=== PATIENT | male | born 1945 | race Caucasian/White ===

== ENCOUNTER 2016-07-07 08:48 | Outpatient (CLI) ==
[2016-05-04 15:28] VITALS: BMI 27.6
[2016-07-07 13:20] LABS: BASOPHILS # (AUTO) 0.1 K/uL (0-0.2); BASOPHILS % (AUTO) 0.7 % (0.0-3.0); EOSINOPHILS # (AUTO) 0.2 K/ul (0.0-0.7); EOSINOPHILS % (AUTO) 3.1 % (0.0-7.0); HEMATOCRIT 38.8 % (42.0-52.0); HEMOGLOBIN 12.7 g/dl (14.0-18.0); IMMATURE GRANULOCYTE % (AUTO) 0.1 % (0.0-5.0); LYMPHOCYTES # (AUTO) 1.6 K/uL (0.60-3.4); LYMPHOCYTES % (AUTO) 23.2 (10.0-50.0); MEAN CORPUSCULAR HEMOGLOBIN 30.1 pg (27.0-31.0); MEAN CORPUSCULAR HGB CONC 32.7 (31.8-35.4); MEAN CORPUSCULAR VOLUME 91.9 fl (80.0-94.0); MONOCYTES # (AUTO) 0.7 K/uL (0.4-2.0); MONOCYTES % (AUTO) 9.5 (0-10); NEUTROPHILS # (AUTO) 4.3 K/ul (2.0-6.9); NEUTROPHILS % (AUTO) 63.4; PLATELET COUNT 311 10^3/uL (140-440); RED BLOOD COUNT 4.22 10^6/ul (4.70-6.10); WHITE BLOOD COUNT 6.85 K/ul (4.2-10.2)
[2016-07-07 13:25] LABS: BILIRUBIN,URINE Negative (NEGATIVE); KETONES,URINE Negative (NEGATIVE); LEUKOCYTE ESTERASE ,URINE Negative (NEGATIVE); NITRITE,URINE Negative (NEGATIVE); PROTEIN,URINE Negative (NEGATIVE); URINE, BLOOD Negative (NEGATIVE)
[2016-07-07 13:35] LABS: ADD URINE MICROSCOPIC NO; ALBUMIN 3.6 g/dL (3.4-5.0); ALBUMIN/GLOBULIN RATIO 0.86; ANION GAP 14.2; BILIRUBIN,TOTAL 0.51 mg/dL (0.00-1.20); BUN/CREATININE RATIO 11.88; CALCIUM 9.7 mg/dL (8.2-10.2); CHOL/HDL RATIO 4.4 (4.5-6.4); CREATININE 1.01 mg/dL (0.60-1.10); POTASSIUM 4.2 mmol/L (3.5-5.1); TOTAL PROTEIN 7.8 g/dL (5.8-8.1)
== END 2016-07-07 08:49 | disposition home or self-care (01) ==
LOC: LAB 08:48
PROVIDERS: ATTEND General Practice
DX: I15.8 Other secondary hypertension (principal); Z79.899 Other long term (current) drug therapy
CPT/HCPCS: 36415; 80053; 80061; 81001; 85025

== ENCOUNTER 2016-09-01 15:59 | Outpatient (CLI) ==
[2016-09-01 16:23] VITALS: BMI 25.8
== END 2016-09-01 16:00 ==
LOC: AMBL 15:59
PROVIDERS: ATTEND Internal Medicine
DX: M54.5 Low back pain (principal); Z98.890 Other specified postprocedural states; V53.5XXA Driver of pick-up truck or van injured in collision with car, pick-up truck or van in traffic accident, initial encounter

== ENCOUNTER 2016-09-01 16:12 | Emergency (ER) ==
[2016-09-01] MEDS ORDERED: ZOFRAN 4 MG/2 ML IM STA (16:18)
[2016-09-01] MEDS ORDERED: MORPHINE 4 MG/ML SYRINGE IM STA (16:18)
[2016-09-01 16:23] VITALS: TEMP 97.8; BMI 25.8
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
--- NOTE | 2016-09-01 17:14 | CT ---
EXAM: CT lumbar spine without contrast HISTORY: Pain COMPARISON: 02/09/2015 TECHNIQUE: CT lumbar spine performed without intravenous contrast. Coronal and sagittal reformatte d images obtained. FINDINGS: The bones appear demineralized. No fracture. No subluxation. Multilevel bulky osteophy te formation. Multilevel intervertebral disc space narrowing that is moderate to severe at L1-L2 an d L4-L5 and severe at L5-S1. 2 mm retrolisthesis of L1 on L2, unchanged. Small hiatal hernia. Aor ta normal in caliber. Atherosclerosis. Colonic diverticulosis. Sacroiliac joints intact with mild degenerative change and partial osseous bridging. T12-L1: Posterior disc osteophyte complex and facet arthrosis causing mild to moderate right and mod erate to severe left neural foraminal narrowing. L1-L2: Posterior disc osteophyte complex and facet arthrosis causing mild central canal narrowing a nd moderate bilateral neural foraminal narrowing. L2-L3: Posterior disc osteophyte complex and facet arthrosis causing mild bilateral neural foramina l narrowing. L3-L4: Posterior disc osteophyte complex and facet arthrosis causing moderate central canal narrowi ng and moderate to severe bilateral neural foraminal narrowing. L4-L5: Posterior disc osteophyte complex and facet arthrosis causing moderate to severe central can al narrowing and moderate to severe bilateral neural foraminal narrowing. L5-S1: Posterior disc osteophyte complex and facet arthrosis causing moderate to severe bilateral n eural foraminal narrowing. IMPRESSION: 1. No fracture. 2. Advanced chronic discogenic degenerative disease and facet arthrosis. Please see segmental anal ysis, noting central canal and neural foraminal narrowing with areas of moderate to severe narrowing .
--- NOTE | 2016-09-01 17:26 | CT ---
EXAM: CT scan thoracic spine HISTORY: Pain COMPARISON: None. FINDINGS: Contiguous axial images obtained through the thoracic spine utilizing 3-mm collimation. Sagittal and coronal reconstructions were imaged and reviewed.. There is a chronic central depressi on involving the T6 vertebral body. There is generalized osteopenia with multilevel disc calcificat ion in the lower thoracic spine. Extensive bridging anterior osteophytes extend from T4 through T12 .. There is no acute fracture or dislocation. Degenerative facet disease is noted within the lower thoracic spine with multilevel neural foraminal narrowing IMPRESSION: Moderate generalized osteopenia with multilevel disc calcification and extensive anterior bridging o steophytes. There is multilevel facet arthropathy with neural foraminal narrowing.
[2016-09-01 17:46] VITALS: BP 183/90
== END 2016-09-01 17:47 | disposition home or self-care (01) ==
LOC: ED 16:12
DX: M54.5 Low back pain (principal); G89.29 Other chronic pain; M54.2 Cervicalgia; V89.2XXA Person injured in unspecified motor-vehicle accident, traffic, initial encounter
CPT/HCPCS: 96372; 99283

== ENCOUNTER 2016-11-07 11:38 | Outpatient (CLI) | payer OTHER ==
[2016-11-07 12:56] LABS: BASOPHILS % (AUTO) 0.9 % (0.0-3.0); EOSINOPHILS # (AUTO) 0.2 K/ul (0.0-0.7); EOSINOPHILS % (AUTO) 3.9 % (0.0-7.0); HEMATOCRIT 38.5 % (42.0-52.0); IMMATURE GRANULOCYTE % (AUTO) 0.2 % (0.0-5.0); LYMPHOCYTES # (AUTO) 1.4 K/uL (0.60-3.4); LYMPHOCYTES % (AUTO) 30.6 (10.0-50.0); MEAN CORPUSCULAR HEMOGLOBIN 31.3 pg (27.0-31.0); MEAN CORPUSCULAR HGB CONC 33.8 (31.8-35.4); MEAN CORPUSCULAR VOLUME 92.5 fl (80.0-94.0); MONOCYTES # (AUTO) 0.5 K/uL (0.4-2.0); MONOCYTES % (AUTO) 10.1 (0-10); NEUTROPHILS # (AUTO) 2.5 K/ul (2.0-6.9); NEUTROPHILS % (AUTO) 54.3; PLATELET COUNT 236 10^3/uL (140-440); RED BLOOD COUNT 4.16 10^6/ul (4.70-6.10); WHITE BLOOD COUNT 4.67 K/ul (4.2-10.2)
[2016-11-07 13:07] LABS: ALBUMIN 3.6 g/dL (3.4-5.0); ALBUMIN/GLOBULIN RATIO 0.92; ANION GAP 14.3; BILIRUBIN,TOTAL 0.48 mg/dL (0.00-1.20); BUN/CREATININE RATIO 12.61; CALCIUM 9.3 mg/dL (8.2-10.2); CHOL/HDL RATIO 3.7 (4.5-6.4); CREATININE 1.11 mg/dL (0.60-1.10); POTASSIUM 4.3 mmol/L (3.5-5.1); TOTAL PROTEIN 7.5 g/dL (5.8-8.1)
[2016-11-07 13:25] LABS: BILIRUBIN,URINE Negative (NEGATIVE); KETONES,URINE Trace (NEGATIVE); LEUKOCYTE ESTERASE ,URINE Negative (NEGATIVE); NITRITE,URINE Negative (NEGATIVE); PH,URINE 5.5 (5-9); PROTEIN,URINE Negative (NEGATIVE); URINE, BLOOD Negative (NEGATIVE)
[2016-11-07 13:30] LABS: ADD URINE MICROSCOPIC NO
== END 2016-11-07 11:39 | disposition home or self-care (01) ==
LOC: LAB 11:38
PROVIDERS: ATTEND General Practice
DX: D50.9 Iron deficiency anemia, unspecified (principal); I10 Essential (primary) hypertension; K57.32 Diverticulitis of large intestine without perforation or abscess without bleeding; K92.2 Gastrointestinal hemorrhage, unspecified; Z79.899 Other long term (current) drug therapy
CPT/HCPCS: 36415; 80053; 80061; 81001; 85025

== ENCOUNTER 2017-03-07 13:07 | Outpatient (CLI) ==
--- NOTE | 2017-03-07 14:29 | DI ---
EXAM: RIGHT WRIST THREE VIEWS HISTORY: Injury, pain FINDINGS: Bones appear demineralized. There is mild osteoarthritis of the radiocarpal articulations . No displaced fracture or joint dislocation is identified. IMPRESSION: No fracture or dislocation.
== END 2017-03-07 13:08 | disposition home or self-care (01) ==
LOC: RAD 13:07
PROVIDERS: ATTEND General Practice
DX: S69.91XA Unspecified injury of right wrist, hand and finger(s), initial encounter (principal)

== ENCOUNTER 2017-03-12 13:20 | Outpatient (CLI) ==
[2017-03-12 13:30] LABS: BASOPHILS # (AUTO) 0.1 K/uL (0-0.2); BASOPHILS % (AUTO) 1.1 % (0.0-3.0); EOSINOPHILS # (AUTO) 0.2 K/ul (0.0-0.7); EOSINOPHILS % (AUTO) 3.1 % (0.0-7.0); HEMATOCRIT 38.3 % (42.0-52.0); HEMOGLOBIN 13.1 g/dl (14.0-18.0); IMMATURE GRANULOCYTE % (AUTO) 0.2 % (0.0-5.0); LYMPHOCYTES # (AUTO) 1.7 K/uL (0.60-3.4); LYMPHOCYTES % (AUTO) 30.3 (10.0-50.0); MEAN CORPUSCULAR HEMOGLOBIN 31.4 pg (27.0-31.0); MEAN CORPUSCULAR HGB CONC 34.2 (31.8-35.4); MEAN CORPUSCULAR VOLUME 91.8 fl (80.0-94.0); MONOCYTES # (AUTO) 0.5 K/uL (0.4-2.0); MONOCYTES % (AUTO) 9.7 (0-10); NEUTROPHILS % (AUTO) 55.6; PLATELET COUNT 245 10^3/uL (140-440); RED BLOOD COUNT 4.17 10^6/ul (4.70-6.10); WHITE BLOOD COUNT 5.47 K/ul (4.2-10.2)
[2017-03-12 13:39] LABS: ADD URINE MICROSCOPIC NO; BILIRUBIN,URINE Negative (NEGATIVE); KETONES,URINE Negative (NEGATIVE); LEUKOCYTE ESTERASE ,URINE Negative (NEGATIVE); NITRITE,URINE Negative (NEGATIVE); PROTEIN,URINE Negative (NEGATIVE); URINE, BLOOD Negative (NEGATIVE)
[2017-03-12 13:43] LABS: ALBUMIN 3.4 g/dL (3.4-5.0); ALBUMIN/GLOBULIN RATIO 0.89; ANION GAP 14.1; BILIRUBIN,TOTAL 0.47 mg/dL (0.00-1.20); BUN/CREATININE RATIO 13.97; CALCIUM 9.5 mg/dL (8.2-10.2); CHOL/HDL RATIO 4.8 (4.5-6.4); CREATININE 0.93 mg/dL (0.60-1.10); POTASSIUM 4.1 mmol/L (3.5-5.1); TOTAL PROTEIN 7.2 g/dL (5.8-8.1)
== END 2017-03-12 13:21 | disposition home or self-care (01) ==
LOC: LAB 13:20
PROVIDERS: ATTEND General Practice
DX: I10 Essential (primary) hypertension (principal); M54.5 Low back pain; D64.9 Anemia, unspecified; K57.32 Diverticulitis of large intestine without perforation or abscess without bleeding; Z79.899 Other long term (current) drug therapy
CPT/HCPCS: 36415; 80053; 80061; 81001; 85025

== ENCOUNTER 2017-07-10 10:17 | Outpatient (CLI) ==
--- NOTE | 2017-07-10 12:33 | CT ---
EXAM: CT THORAX HISTORY: Cough. TECHNIQUE: CT thorax without intravenous contrast. Multiplanar images presented. Coronal and sagit cinthia re-formations. COMPARISON: None FINDINGS: Heart size is within normal limits. There is mild to moderate atherosclerotic disease. A few scatte red subcarinal and hilar lymph nodes are seen, some which are calcified. There is mild biapical irregular pleuroparenchymal thickening suggesting probable fibrosis. A few sc attered micro nodules are seen. No acute infiltrates or vascular congestion. No pleural fluid. The bones appear demineralized. There is ankylosis of the thoracic spine. Incidental note of a 1 cm low attenuation lesion in the lower right hepatic lobe unchanged since prior CT abdomen and pelvis da pete 01/30/2015. This has probably a cyst. IMPRESSION: 1. There is mild biapical irregular pleuroparenchymal thickening suggesting probable fibrosis. A fe w scattered micro nodules are seen. No acute infiltrates or vascular congestion. No pleural fluid. 2. Mild to moderate atherosclerotic disease.
== END 2017-07-10 10:18 | disposition home or self-care (01) ==
LOC: RAD 10:17
PROVIDERS: ATTEND General Practice
DX: R05 Cough (principal); R07.81 Pleurodynia; R50.9 Fever, unspecified; D64.9 Anemia, unspecified; I10 Essential (primary) hypertension; Z12.5 Encounter for screening for malignant neoplasm of prostate; Z79.899 Other long term (current) drug therapy
CPT/HCPCS: 36415; 80053; 80061; 81001; 85025; 86644; 86645; 86664; 86710; 87502

== ENCOUNTER 2017-07-23 06:27 | Outpatient (CLI) ==
--- NOTE | 2017-07-23 14:04 | ECHOSTRESS ---
Date of Exam: 07/23/2017 Ordering Physician: PAT BRYANT Reason for Echo: SHORT OF BREATH, FATIGUE, STRESS TEST -NO ISCHEMIA M-Mode Normal Adult Results LV Dimensions Normal Adult Results AoV Opening excursions >1.6 LVEDD-base- 3.5-5.8 Ao root dimensions 2.0-3.7 LVESD-base- 3.1-4.6 L. Atrium dimensions 1.9-3.8 Post. Wall thickness 0.8-1.1 IV septum (thickness) 0.7-1.2 Post. Wall excursion 0.72-1.3 Septal motion Systolic motion R. Ventricular cavity 1.5-2.0 LVEF 60% Paradoxical septal wall motion 2-D: NORMAL LEFT VENTRICULAR CONTRACTILITY RESTING AND POST EXERCISE M-MODE: MV: AV: TV: PV: CHAMBER SIZE: WALL MOTION: NORMAL LEFT VENTRICULAR CONTRACTILITY RESTING AND POST EXERCISE PERICARDIUM: INTERPRETATION: 1. NORMAL LEFT VENTRICULAR CONTRACTILITY RESTING AND POST EXERCISE MTDD
--- NOTE | 2017-07-23 14:29 | STRESSECHO ---
Date of Test: 07/23/2017 Reason for Exam: SHORT OF BREATH, FATIGUE Ordering Physician: PAT BRYANT Current Medications: IRBESARTAN, VIT D, FERROUS SULFATE, ASA, ATIVAN, L LIPINE, VIT C, GABAPENTIN, CARISOPRODOL, OXYCODONE, CYANOCOBALAMIN, CALCIUM, MAGNESIUM Physical Findings: SI, S2, NO S3 Resting EKG: SINUS RHYTHM, NO ACUTE CHANGES Target Heart Rate: 124 Max Heart Rate: 147 S-T SEGMENT STAGE MPH/GRADE HEART RATE BPM BLOOD PRESSURE MMHG RHYTHM 0 +/- ELEVATION DEPRESSION SYMPTOMS,COMMENTS At Rest 62 186/92 SR X NONE 1 1.7/10% 130 190/76 SR X NONE 2 2.5/12% 3 3.4/14% 4 4.2/16% 5 5.0/18% Immediately after 144 SR X SOB Durations of Exercise: 4:00 Maximum Heart Rate Reached: 144 Reason for Termination: SHORT OF BREATH 4 Min Post Exercise: HR: 76BPM, BP: 176/110 MMHG, SR, +/-, NO CHEST PAIN INTERPRETATION: 94% OXYGEN SATURATION WITH EXERCISE METS 7.0 1. BLOOD PRESSURE-HYPERTENSION AT REST AND WITH EXERCISE 2. NO EVIDENCE OF ISCHEMIA BY ST-T WAVE 3. NO CHEST PAIN OR CHEST DISCOMFORT 4. NO ARRHYTHMIAS NORMAL LEFT VENTRICULAR CONTRACTILITY-RESTING AND POST EXERCISE MTDD
== END 2017-07-23 06:28 | disposition home or self-care (01) ==
LOC: CAR 06:27
PROVIDERS: ATTEND General Practice
DX: R06.02 Shortness of breath (principal); R53.83 Other fatigue; I10 Essential (primary) hypertension

== ENCOUNTER 2017-08-23 10:57 | Outpatient (CLI) | payer OTHER ==
--- NOTE | 2017-08-23 12:29 | DI ---
EXAM: Three views of the left foot. History: Left foot pain. Findings: No acute fracture or dislocation. Mild narrowing of the first MTP joint with tiny osteoph ytes. No radiopaque foreign bodies. Impression: 1. No acute osseous abnormality. 2. Mild arthritis of the first MTP joint
--- NOTE | 2017-08-23 12:31 | DI ---
EXAM: LEFT ANKLE 3 VIEWS HISTORY: Ankle pain FINDINGS: Trabecular markings are accentuated consistent with at least mild diffuse demineralization . No fracture or joint dislocation. No ankle joint effusion is seen. There is bony spurring of the posterior calcaneus consistent with mild calcific tendinosis. IMPRESSION: 1. Mild calcific tendinosis posterior calcaneus. 2. No fracture or dislocation.
== END 2017-08-23 10:58 | disposition home or self-care (01) ==
LOC: RAD 10:57
PROVIDERS: ATTEND General Practice
DX: M79.672 Pain in left foot (principal)

== ENCOUNTER 2017-09-04 08:29 | Day surgery (SDC) | payer OTHER ==
[2017-09-04] MEDS ORDERED: NEOSPORIN OINT 0.9 GM PACKET TP STA (08:44)
[2017-09-04] MEDS ORDERED: LIDOCAINE 1% 20 ML MDV ONE ×2 (10:11)
[2017-09-04] MEDS: LIDOCAINE 1% 20 ML MDV ID STA ×2 (10:11→10:30)
--- NOTE | 2017-09-04 11:36 | OP ---
DATE OF PROCEDURE: 09/04/17 INDICATIONS: 72-year-old male is scheduled for surgery today. He has two lesions to be removed; one at the sagittal area near the buttocks. He also has a lesion on the left face, which is raised and umbilicated somewhat. These probably are skin carcinomas. He was advised as well as his , that I would becoming close to the lesion in the scalp because of the problem of approximation of the edges, that if there is a cancer close to the edge or at the edge, he would probably need reexcision. The area on the face also would be excised. The patient was advised about the possibility of infection as well as excessive scar formation. PREOPERATIVE DIAGNOSIS: 1. TUMOR SCALP TIMES TWO, SMALLER ANTERIOR, LARGER POSTERIOR. 2. 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 OPERATION: ELLIPTICAL EXCISION. DESCRIPTION OF PROCEDURE: The patient in the supine posture was then prepped and draped for surgery. The patient's scalp tumor was excised initially. 1% Xylocaine was injected. It was then incised in an elliptical direction anterior/posterior. These included the smaller lesion in front of the larger one. The area was then irrigated with Betadine followed by Saline and the edges were approximated with 5-0 Vicryl and 5-0 Prolene. The area on the face was then anesthetized and excised in a slotted direction and was approximated with 5-0 Vicryl and 5-0 Prolene. The patient tolerated the procedure well and was instructed to see me in one week or before if any signs of infection, pain, swelling, drainage or redness. LAUREEN
[2017-09-04 14:28] VITALS: BP 178/88; TEMP 97.2
== END 2017-09-04 10:55 | disposition home or self-care (01) ==
LOC: SURG 08:29
PROVIDERS: ATTEND General Practice
DX: C44.42 Squamous cell carcinoma of skin of scalp and neck (principal); C44.320 Squamous cell carcinoma of skin of unspecified parts of face
CPT/HCPCS: 11623; 11642

== ENCOUNTER 2018-02-10 10:05 | Inpatient (IN) ==
[2018-02-10 11:19] VITALS: BMI 24.2
[2018-02-10] MEDS ORDERED: TYLENOL PO PRN (11:39)
[2018-02-10] MEDS: DEXTROSE 5%-LR IV SOLUTION 1,000 ML IV SCH ×2 (12:01→23:01)
[2018-02-10] MEDS: ZINC GLUCONATE 50 MG PO SCH ×3 (13:03→20:05)
[2018-02-10] MEDS: DOXY-100 100 MG in SODIUM CHLORIDE 100 ML IV SCH ×2 (13:04→20:04)
[2018-02-10] MEDS ORDERED: NON-FORMULARY MEDICATION (Gabapentin [Neurontin] 600 MG) PO SCH (15:00)
[2018-02-10] MEDS: SOMA PO SCH ×2 (15:26→20:04)
[2018-02-10] MEDS: NEURONTIN PO SCH ×2 (15:26→20:04)
--- NOTE | 2018-02-10 17:52 | DI ---
EXAM: Chest two view. HISTORY: Short of breath COMPARISON: 02/22/2014 FINDINGS: Heart size is normal. There is tortuosity and probable ectasia of the descending aorta. No pulmonary consolidation or pneumonia is seen. There is no pleural fluid. There is severe degener ative changes left glenohumeral joint with joint space narrowing osteophyte IMPRESSION: 1. Cardiac silhouette stable in size with moderate aortic atherosclerotic tortuosity possible ectasi a of the descending aorta 2. No acute pulmonary infiltrate. No evidence of congestive heart failure or pleural effusion.
[2018-02-10] MEDS: TAMIFLU PO SCH ×2 (17:56→20:04)
[2018-02-10] MEDS: FERROUS SULFATE PO SCH (20:03)
[2018-02-10] MEDS: ATIVAN PO SCH (20:04)
[2018-02-10] MEDS ORDERED: NON-FORMULARY MEDICATION (Ferrous Sulfate [Ferrous Sulfate] 325 MG) PO SCH (21:00)
[2018-02-11] MEDS ORDERED: CHOLECALCIFEROL PO SCH (09:00)
[2018-02-11] MEDS ORDERED: IRBESARTAN 300 MG PO SCH (09:00)
[2018-02-11] MEDS ORDERED: VITAMIN B COMPLEX VIT C NO 4 150 MG PO SCH (09:00)
[2018-02-11] MEDS: ASPIRIN CHEWABLE PO SCH (09:22)
[2018-02-11] MEDS: AVAPRO PO SCH (09:23)
[2018-02-11] MEDS: BALANCED B-100 PO SCH (09:23)
[2018-02-11] MEDS: MULTIVITAMIN TABLET PO SCH (09:24)
[2018-02-11] MEDS: VITAMIN C PO SCH (09:24)
[2018-02-11] MEDS: FERROUS SULFATE PO SCH ×2 (09:24→21:23)
[2018-02-11] MEDS: NEURONTIN PO SCH ×3 (09:25→21:23)
[2018-02-11] MEDS: VITAMIN D PO SCH (09:25)
[2018-02-11] MEDS: ZINC GLUCONATE 50 MG PO SCH ×4 (09:26→21:24)
[2018-02-11] MEDS: TAMIFLU PO SCH ×2 (09:26→21:23)
[2018-02-11] MEDS: LYSINE HCL 500 MG PO SCH (09:27)
[2018-02-11] MEDS ORDERED: SOMA PO PRN (09:30)
[2018-02-11] MEDS: SOMA PO SCH (09:32)
[2018-02-11] MEDS: DOXY-100 100 MG in SODIUM CHLORIDE 100 ML IV SCH ×2 (09:41→21:23)
[2018-02-11] MEDS: DEXTROSE 5%-LR IV SOLUTION 1,000 ML IV SCH ×3 (09:42→21:30)
[2018-02-11] MEDS: ATIVAN PO SCH (21:25)
[2018-02-12] MEDS: DEXTROSE 5%-LR IV SOLUTION 1,000 ML IV SCH (06:43)
[2018-02-12] MEDS: DOXY-100 100 MG in SODIUM CHLORIDE 100 ML IV SCH (08:56)
[2018-02-12] MEDS: BALANCED B-100 PO SCH (08:58)
[2018-02-12] MEDS: AVAPRO PO SCH (08:58)
[2018-02-12] MEDS: ASPIRIN CHEWABLE PO SCH (08:58)
[2018-02-12] MEDS: VITAMIN C PO SCH (08:59)
[2018-02-12] MEDS: MULTIVITAMIN TABLET PO SCH (08:59)
[2018-02-12] MEDS: TAMIFLU PO SCH (08:59)
[2018-02-12] MEDS: VITAMIN D PO SCH (09:00)
[2018-02-12] MEDS: NEURONTIN PO SCH ×2 (09:00→16:24)
[2018-02-12] MEDS: LYSINE HCL 500 MG PO SCH (09:01)
[2018-02-12] MEDS: FERROUS SULFATE PO SCH (09:01)
[2018-02-12] MEDS: ZINC GLUCONATE 50 MG PO SCH ×3 (09:02→16:25)
[2018-02-12 14:41] VITALS: BP 150/80; TEMP 98.5
--- NOTE | 2018-02-13 08:53 | HP ---
DATE OF SERVICE: 02/10/18 CHIEF COMPLAINT: Fever, chills and weakness. SOURCE OF INFORMATION: The patient and . HISTORY OF PRESENT ILLNESS: The patient claimed that he did not feel well Sunday and had chills at the end of the day after work. He also had diarrhea according to his . He continued to have fever, chills and his contacted me 02/09/18, with regard to chills, fever, weakness and some nausea. He had mowed the yard on 02/09/18 in spite of his illness was barely able to move when he got home. He did not wish to be admitted then to the hospital but his problem continued until the next day so he came to the hospital. He had Tylenol however before presentation. The patient appeared uncomfortable at the time of initial evaluation and sick looking. The patient did not have sore throat. PAST PERSONAL HISTORY: The patient had bilateral cataract extraction, history of back pain, upper thighs as well as left knee and left TKR. He also has hypertension with GERD. He also had history of recurrent headaches. He was also diagnosed with sleep apnea without CPAP. FAMILY HISTORY: Sister had renal carcinoma, congestive heart failure and diabetes mellitus. Mother had heart disease with hypertension. SOCIAL HISTORY: The patient is and resides with his . Children are grown. 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 He smoked previously but stopped several years ago. No alcoholic beverages. 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 MEDICATIONS: (prior to admission to this hospital) Multivitamins one daily Aspirin 81 mg daily Vitamin D3 5000 international units daily Vitamin C 500 mg daily Lysine 500 mg daily Ferrous Sulfate 325 mg twice a day Multivitamins consisting of Vitamin C plus B complex 150 mg daily Vitamin B12 1,000 mcg IM weekly Zinc gluconate 50 mg p.o. q.i.d. Soma 350 mg p.o. t.i.d. Gabapentin 600 mg three times a day Irbesartan 300 mg p.o. daily Lorazepam 1 mg p.o. bedtime ALLERGIES: HYDROCODONE, IODINATED CONTRAST, TRAMADOL REVIEW OF SYSTEMS: CONSTITUTIONAL: The patient has fever and chills with fatigue. BOTTOM CAGER: The patient has headaches although he had headaches in the past. The headaches seem to be improve using a Tylenol. He denies any syncopal episode or seizure disorder. VISUAL: Denies any double vision, blurred vision or loss of vision including hemianopsia. AUDITORY: Hearing is decreased. No tinnitus, pain or drainage. RESPIRATORY: No cough, no shortness of breath with usual exertion. No hemoptysis. CARDIOVASCULAR: Denies any chest pain or chest tightness. GASTROINTESTINAL: Appetite is decreased and the patient has diarrhea. No abdominal pain. No blood in the stool. GENITOURINARY: Denies any pain on urination or frequency as well as urgency. MUSCULOSKELETAL: The patient has back pain as well as knee pain. The left was replaced, about 2 years ago. INTEGUMENT: Denies any rash or pruritus or ecchymosis. I had inspected also his body and there are no rashes that I could see. ENDOCRINE: Negative. HEMATOLOGIC: No history of prolonged bleeding. PSYCHIATRIC: The patient didn't feel well and is not cheerful. He does answer questions and obey commands. PHYSICAL EXAMINATION: GENERAL: We have a 73-year-old male admitted to the hospital because of chills, fever and fatigue. Reason for the above problems are not clear. It began Sunday, two days before admission. VITAL SIGNS: Admission vital signs: Temperature 98, pulse 79, BP 164/82, respiratory rate 20, oxygen saturation 95 on room air. He is 5'7", 154 lbs, 12.2 ounces. HEAD: Unremarkable. Scalp - no active dermatitis. Face is symmetrical and equal with no facial weakness, no redness. He denies any significant tenderness in the frontomaxillary sinus areas to palpation and/or pressure. EYES: Pupils equal/reactive to light about 3 mm in size. Conjunctivae slightly pale. Sclerae not icteric. EARS: External unremarkable. MOUTH: No inflammation, no exudates. THROAT: No inflammation, tumors or exudate. NECK: No masses. No bruit. No tenderness. No rigidity. CHEST: Essentially symmetrical and equal with good expansion and no remarkable tenderness. LUNGS: Breath sounds are heard in both sides. No rales or wheezing. HEART: Audible and regular with good tones. No murmurs. ABDOMEN: Flat, soft with no remarkable tenderness. No guarding. Bowel sounds are active. No masses palpable. EXTERNAL GENITALIA: Not examined. RECTAL: Not performed. LOWER EXTREMITIES: Essentially symmetrical and equal. The patient has some edema on both legs. Pedal pulses are present. Scar on the left knee from the TKR. UPPER EXTREMITIES: Symmetrical and equal. ASSESSMENT: 1. ACUTE FEBRILE ILLNESS MAY BE DUE TO [place] SPOTTED FEVER VS ACUTE VIRAL SYNDROME. 2. HISTORY OF HYPERTENSION. 3. HISTORY OF SEVERE HEADACHES, MIGRAINE. 4. HISTORY OF GERD. 5. HISTORY OF LUMBAR PAIN. TIME SPENT: GREATER THAN 65 MINUTES MTDD
--- NOTE | 2018-02-13 10:24 | DS ---
DATE OF SERVICE: 02/12/18 PATIENT IDENTIFICATION: 73-year-old male who initially got fever and chills on the evening of 02/09/18. The patient also had diarrhea and lack of appetite. No vomiting. The patient's chills and fever continued. The patient had taken some analgesics. The patient continued to have chills and fever so he agreed to be admitted to the hospital and was admitted on 02/10/18. HOSPITAL COURSE: The patient at that time appeared to be ill though he answers questions and follows commands. He denies any visual problems. Neck has no rigidity. Lungs were clear. Heart normal sinus rhythm. Abdomen unremarkable and no problems urinating. Labs done on admission showed a normal WBC 5,090, slightly lower hemoglobin, hematocrit 13.2 and 39.6 respectively. Platelets normal at 184,000. Electrolytes normal. C02 slightly above normal 30.6. Renal panel normal. Liver panel normal as well as total protein. UA normal. Influenza A and B by nuclear amplification is negative. This patient was advised that I will treat him although not knowing what was the cause of his fever and if we would wait for the results that maybe his problem would have worsened. I felt that maybe he might have [place] Spotted Fever because his work brings him to the yard every day that he is doing yard work. This could also be a viral syndrome and will try to give him some antiviral medications. He had fever, chills, diarrhea and muscular aches. He complained of bad pain in the back the whole entire back from the cervical spine down to the lumbar area and the sides. He just did not feel good as well as also the headache. This patient was given Doxycycline 100 mg intravenously q.12hr and Tamiflu 75 mg every 12hr. The patient also was given intravenous fluids consisting of Dextrose 5% in Lactated Ringers. It was run at 125 cc/hr. The CBC the next day 02/11/18 shows normal WBC, 5,200. Further decrease of the hemoglobin/hematocrit due to dilution with the intravenous fluids. CMP with no remarkable abnormalities. The urine repeated still remained normal. The patient's temperature on admission was normal since he had taken an antipyretic, the Tylenol. The patient by 5:39 p.m. developed a rise in temperature to 101.1. The patient developed a headache and was given two Tylenol. Since then his temperature has remained normal from about 10 o' clock p.m. on the day of admission until discharge today. His blood pressure remained elevated and fluctuating. He claimed that he had diarrhea due to the medication and I reminded him that he had diarrhea before he came in to the hospital. His respiratory rate ranged from 16 to 22 and his oxygen saturation on room air has ranged from 90 to 98. Variations may be due to placement. The patient today, mid morning, when I saw him felt well and I did tell him that his temperature had not risen and we will probably send him home today. He remained well, claimed to be feeling good so I felt he could go home to continue the medication. This patient had some reaction to the IV and you could see the vein where the intravenous medication of Doxycycline went through. The patient just before discharge was seen again and he was alert, feeling good, no headaches, no visual disturbances. He had not had any chills. The lungs are clear to auscultation on both sides, heart is normal sinus rhythm. Abdomen nontender. No tenderness in the calf muscles. His vital signs at 2 o'clock had a temperature of 98.5, pulse rate wrong at 20. Heart rate was about 80 on auscultation. Respiratory rate 18, oxygen saturation 96. This patient is to resume all of his medications and I explained to them that I would continue the Tamiflu because that may be the reason and that he will take it the next four days. He would have a total of maybe 5.5 days of medication. He also will be continued on Doxycycline until we get the culture and the other reports that were requested. The titers for the Markle is normal. Ehrlichia and Lyme' s disease were also normal. The blood culture is negative. Maybe the Doxycycline can be discontinued. Will see him this coming Sunday at the office and hoping that all the results will be in and will have some idea as to what caused the febrile illness. 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 I will schedule him for an ultrasound of the aorta at the time of followup this coming Sunday. The chest has no acute pulmonary infiltrate, no evidence of congestive heart failure or pleural effusion. No evidence of congestive heart failure or pleural effusion. FINAL DIAGNOSES: 1. ACUTE FEBRILE ILLNESS MAYBE RESOLVED, ETIOLOGY UNDETERMINED 2. HISTORY OF [place] SPOTTED FEVER 3. HYPERTENSION ON MEDICATION 4. GERD BY HISTORY 5. OSTEOARTHRITIS KNEES 6. LEFT TKR 7. CHRONIC LUMBAR PAIN PLAN: I did talk to the patient as well as the , who were together in the room and I expressed to them that we will continue the medication and I will see him Sunday and hopefully we will have the results of the test and if it would tell us what was the reason for the fever. It might be also that the febrile condition may be due to heat exposure. 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 He was extremely fatigued at the completion of his job that Sunday. I also told him to come back to the hospital if he has recurrence of the problem. TIME SPENT: GREATER THAN 30 MINUTES MTDD
[2018-02-17] MEDS ORDERED: [UNRECOGNIZED DRUG - OTHER] MC SCH (09:00)
[2018-02-17] MEDS ORDERED: VITAMIN B-12 IM SCH (09:00)
== END 2018-02-12 17:50 | disposition home or self-care (01) | DRG 305 ==
LOC: MEDSURG B 10:05
PROVIDERS: ADMIT General Practice; ATTEND General Practice
DX: I10 Essential (primary) hypertension (principal); M17.0 Bilateral primary osteoarthritis of knee
CPT/HCPCS: 36415; 80053; 81001; 85025; 86617; 86710; 86757; 87015; 87040; 87045; 87046; 87502; 87651; 87899; 93005; 93010

== ENCOUNTER 2018-02-19 09:54 | Outpatient (CLI) | END 2018-02-19 09:55 | disposition home or self-care (01) | LOC: FCC-LAB 09:54 | PROVIDERS: ATTEND General Practice | DX: R50.9 Fever, unspecified (principal); A77.0 Spotted fever due to Rickettsia rickettsii; R53.83 Other fatigue | CPT/HCPCS: 36415; 86710; 86757 ==